=== PATIENT | male | born 1950 | race Caucasian/White ===

== ENCOUNTER → 2016-08-28 | Outpatient (CLI) | payer OTHER ==
[~2016-08-28] MED LIST: AMLO-110 PO; ATOR-26 PO; BENZ100C84 PO; CIPR-255 PO; CLC100 PO; CLIN300C2 PO; FLUT0.15 NAE; FURO20TA PO; GABA-113 PO; HYDR12.55 PO; LISI40TA PO; METF-383 PO; METF750T PO; METO25TA3 PO; MRLP17 PO; NRN400 PO; NSP500 PO; NTRGSL/4 UT; NVLGI7030 SC; SILV1CRE73 TOP; TRIA0.1C20 TOP; TYL325X PO; ZNTT/150 PO
[2016-08-28 18:54] LABS: ALT/SGPT 76 U/L (12-78); BLOOD UREA NITROGEN 13 mg/dl (7-18); BUN/CREATININE RATIO 11.8 (10-20); CALCIUM 9.3 mg/dl (8.5-10.1); CARBON DIOXIDE 25 mmol/L (21-32); CHLORIDE 99 mmol/L (98-107); GLUCOSE 447 mg/dl (70-99); POTASSIUM 4.4 mmol/L (3.5-5.1); SODIUM 130 mmol/L (136-145)
[2016-08-28 19:24] LABS: BETA-HYDROXYBUTYRATE 1.18 mg/dL (0.2-2.81)
== END | disposition home or self-care (01) ==
LOC: C.LABMFLN 10:54
PROVIDERS: ATTEND Family Medicine
DX: E11.9 Type 2 diabetes mellitus without complications (principal); Z11.59 Encounter for screening for other viral diseases

== ENCOUNTER 2016-09-06 09:46 | Inpatient (IN) | payer OTHER ==
[~2016-09-06] VITALS: Ht 175.3 cm; Wt 112.6 kg
[~2016-09-06 09:46] MED LIST changes: -BENZ100C84 PO; -CIPR-255 PO; -CLC100 PO; -CLIN300C2 PO; -FURO20TA PO; -METF750T PO; -MRLP17 PO; -NRN400 PO; -TYL325X PO
[2016-09-06] MEDS ORDERED: SODIUM CHLORIDE 0.9% 1000ML 1,000 ML IV STA (10:32)
[2016-09-06 10:58] LABS: BASO % 0.3 %; BASO ABS # 0.02 K/uL (0-0.2); COMPLETE YES; EOS % 1.6 %; HEMATOCRIT 37.3 % (42-52); IG% 0.9 %; LYMPH % 19.1 %; LYMPH ABS # 1.41 K/uL (1.2-3.4); MEAN CELL VOLUME 83.8 fL (80-100); MEAN CORPUSCULAR HEMOGLOBIN 30.6 pg (25-34); MEAN CORPUSCULAR HGB CONC 36.5 g/dl (32-36); MEAN PLATELET VOLUME 9.5 fL (7.4-10.4); MONO % 12.2 %; NEUT % 65.9 %; PLATELET COUNT 283 K/uL (130-400); RED BLOOD COUNT 4.45 M/uL (4.7-6.1); WHITE BLOOD COUNT 7.37 K/uL (4.8-10.8)
[2016-09-06] MEDS ORDERED: OPTIRAY 320 IV PRN (11:00)
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
[2016-09-06 11:22] LABS: BUN/CREATININE RATIO 11.4 (10-20); CALCIUM 8.7 mg/dl (8.5-10.1); CREATININE 0.96 mg/dl (0.60-1.40); MAGNESIUM 1.8 mg/dl (1.8-2.4); POTASSIUM 4.2 mmol/L (3.5-5.1)
[2016-09-06 11:36] LABS: BETA-HYDROXYBUTYRATE 4.28 mg/dL (0.2-2.81)
[2016-09-06] MEDS ORDERED: BENZ100C84 PO (11:54)
[2016-09-06] MEDS ORDERED: CIPR-255 PO (11:54)
[2016-09-06] MEDS ORDERED: METF750T PO (12:07)
[2016-09-06] MEDS ORDERED: NRN400 PO (12:07)
[2016-09-06] MEDS ORDERED: FURO20TA PO (12:07)
--- NOTE | 2016-09-06 12:28 | DIAGNOSTIC IMAGING REPORT ---
CT OF THE ABDOMEN AND PELVIS WITH CONTRAST CLINICAL HISTORY: Left upper quadrant abdominal pain. COMPARISON STUDY: CT of the abdomen and pelvis December 29, 2015. TECHNIQUE: Following IV administration of 93 mL of Optiray-320, axial images of the abdomen and pelvis were obtained from the lung bases to the proximal femurs. Images were reviewed in the axial, sagittal, and coronal planes. IV contrast was administered without complication. CT DOSE: 1802.46 mGy.cm FINDINGS: Visualization portions of the lower chest demonstrate a complex hypodense abnormality centered within the left lower anterior chest wall that measures 9.5 x 7.5 cm. This may involve a portion of the diaphragm and is contiguous with several costal cartilages and extends into left upper quadrant of the abdomen. There is mild adjacent infiltration. The components superficial and deep to the chest/abdominal wall may communicate. No additional fluid collections are identified. The heart is moderately enlarged. The liver, spleen, adrenal glands, kidneys and pancreas are unremarkable. There is no evidence for a bowel obstruction. No pneumatosis, free air or portal venous gas is present. No suspicious osseous lesions are present. IMPRESSION: Complex 9.5 x 7.5 cm hypodense abnormality within the left lower anterior chest wall, extending into the upper abdominal wall, as described above. Minimal adjacent infiltration. The appearance favors a complex fluid collection such as hematoma or abscess. A mass could appear similar although is considered somewhat less likely. Electronically signed by: Tobin Craig M.D. 09/06/2016 12:26 PM Dictated Date/Time: 09/06/2016 12:14 PM
[2016-09-06 12:35] LABS: URINE APPEARANCE CLEAR (CLEAR); URINE BILIRUBIN NEG (NEG); URINE COLOR YELLOW; URINE EPITHELIAL CELL AUTO 0-5 /lpf (0-5); URINE NITRITE NEG (NEG); URINE PH 7.5 (4.5-7.5); URINE SPECIFIC GRAVITY 1.033 (1.000-1.030); UROBILINOGEN NEG (NEG); ZZUR CULT IF INDIC CLEAN CATCH NO
[2016-09-06 12:37] LABS: MANUAL MICROSCOPIC REQUIRED? NO; REVIEW REQ? NO; SULFASALICYLIC ACID POS (NEG)
[2016-09-06] MEDS ORDERED: NovoLIN-R INSULIN PER UNIT CHARGE SC STA (12:50)
[2016-09-06] MEDS ORDERED: CIPROFLOXACIN 400MG / 200ML D5W IV STA (12:53)
[2016-09-06] MEDS ORDERED: METRONIDAZOLE 500MG / 100ML NSS IV STA (12:53)
[2016-09-06] MEDS ORDERED: ONDANSETRON INJ 2 MG/ML 2 ML VIAL IV STA (14:22)
[2016-09-06] MEDS ORDERED: HYDROmorphone INJ 1 MG/ML SYR IV STA (14:22)
[2016-09-06] MEDS ORDERED: ALUMINUM/MAGNESIUM/SIMETH (MAALOX MAX) 30 ML UDC PO PRN (14:45)
[2016-09-06] MEDS ORDERED: OXYCODONE HCL IR 5 MG TAB (IMMEDIATE RELEASE) PO PRN (14:45)
[2016-09-06] MEDS ORDERED: LORAZEPAM 2 MG/ML 1 ML VIAL IV PRN ×2 (14:45)
[2016-09-06] MEDS ORDERED: MAGNESIUM HYDROXIDE SUSP 30 ML UDC PO PRN (14:45)
[2016-09-06] MEDS ORDERED: LORAZEPAM 0.5 MG TAB PO PRN (14:45)
[2016-09-06] MEDS ORDERED: ONDANSETRON INJ 2 MG/ML 2 ML VIAL IV PRN (14:45)
[2016-09-06] MEDS ORDERED: ACETAMINOPHEN 325 MG TAB PO PRN (14:45)
[2016-09-06] MEDS ORDERED: MAGNESIUM CITRATE 296 ML/BTL PO ONE (15:30)
[2016-09-06] MEDS ORDERED: POLYETHYLENE (MIRALAX) 17 GM PACK PO PRN (15:30)
[2016-09-06] MEDS ORDERED: LORAZEPAM 2 MG/ML 1 ML VIAL IV ONE (15:30)
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
[2016-09-06] MEDS: MoRPHine SULFATE 4 MG/ML 1 ML CARP\\VIAL IV PRN (17:41)
[2016-09-06 18:00] VITALS: BP 132/80; PULSE 120; TEMP 36.9; O2SAT 93; Ht 175.3 cm; Wt 112.6 kg
[2016-09-06] MEDS ORDERED: LORAZEPAM INJ 1 MG in SYRINGE 0.5 ML IV PRN ×2 (18:15→18:45)
[2016-09-06] MEDS: INSULIN ASPART 100 UNITS/ML 3 ML PEN SC SCH ×2 (18:15→21:20)
[2016-09-06] MEDS ORDERED: SODIUM CHLORIDE 0.9% 1000ML 1,000 ML IV SCH (18:15)
[2016-09-06] MEDS ORDERED: LORAZEPAM INJ 0.5 MG in SYRINGE 0.25 ML IV PRN (18:15)
[2016-09-06] MEDS ORDERED: GLUCAGON FOR INJ 1 MG VIAL SQ PRN (18:30)
[2016-09-06] MEDS ORDERED: GLUCOSE 10 TABS/TUBE PO PRN (18:30)
[2016-09-06] MEDS ORDERED: GLUCOSE 40% GEL 15 GM TUBE PO PRN (18:30)
[2016-09-06] MEDS ORDERED: DEXTROSE 50% 50 ML SYR IV PRN (18:30)
[2016-09-06] MEDS: MoRPHine SULFATE 2 MG/ML CARP IV PRN (21:17)
[2016-09-06] MEDS: ATORVASTATIN 40 MG TAB PO SCH (21:18)
[2016-09-06] MEDS: GABAPENTIN 400 MG CAP PO SCH (21:18)
[2016-09-06] MEDS: INSULIN 70% ASPART PROTAMINE/30% ASPART SC SCH (21:21)
[2016-09-06] MEDS: RANITIDINE HCL 150 MG TAB PO SCH (21:22)
[2016-09-06 22:50] VITALS: BP 137/89; PULSE 103; TEMP 37.5; O2SAT 94
[2016-09-07] VITALS (14 sets, daily range): BP systolic 107–144; BP diastolic 54–78; PULSE 70–112; TEMP 36.6–38.2; O2SAT 91–96
[2016-09-07 08:20] LABS: HEMATOCRIT 37.3 % (42-52); MEAN CELL VOLUME 85.2 fL (80-100); MEAN CORPUSCULAR HEMOGLOBIN 29.9 pg (25-34); MEAN CORPUSCULAR HGB CONC 35.1 g/dl (32-36); MEAN PLATELET VOLUME 9.4 fL (7.4-10.4); PLATELET COUNT 282 K/uL (130-400); RED BLOOD COUNT 4.38 M/uL (4.7-6.1); WHITE BLOOD COUNT 9.01 K/uL (4.8-10.8)
[2016-09-07 08:55] LABS: BUN/CREATININE RATIO 10.7 (10-20); CALCIUM 8.3 mg/dl (8.5-10.1); CREATININE 0.89 mg/dl (0.60-1.40)
[2016-09-07] MEDS ORDERED: NIASPAN 500 MG TABCR PO SCH (09:00)
[2016-09-07] MEDS ORDERED: FUROSEMIDE 20 MG TAB PO SCH (09:00)
--- NOTE | 2016-09-07 09:56 | DIAGNOSTIC IMAGING REPORT ---
ULTRASOUND GUIDED ASPIRATION OF LEFT LOWER ANTERIOR CHEST WALL COLLECTION CLINICAL HISTORY: Fluid collection. COMPARISON STUDY: CT of the abdomen and pelvis September 06, 2016. PROCEDURE: The procedure, risks and benefits were discussed with the patient including the risk of bleeding, infection and injury to adjacent structures. The patient agreed to the procedure and informed written consent was obtained. The procedure was performed by Dr. Craig following a timeout. Skin of the left lower chest/upper quadrant of the abdomen was prepped and draped in sterile fashion and local anesthesia was achieved with 1% lidocaine. Under direct ultrasound guidance, an 18-gauge, 3 and 1/2 inch spinal needle was directed into the fluid collection. There was immediate return of purulent fluid. 2 cc of fluid was aspirated and sent to the laboratory for Gram stain, culture and sensitivity. No additional fluid was aspirated as the patient will return later today for CT-guided drain placement within the suspected abscess. The patient tolerated the procedure well and no immediate complications were evident. IMPRESSION: Ultrasound guided aspiration of 2 cc of purulent fluid from the left lower anterior chest wall collection. The findings suggest an abscess. The patient will return later today for a CT-guided drain placement. Fluid sent to laboratory for analysis. Electronically signed by: Tobin Craig M.D. 09/07/2016 9:54 AM Dictated Date/Time: 09/07/2016 9:51 AM
[2016-09-07] MEDS: FLUTICASONE PROPIONATE NA SPR 16 GM BTL NAE SCH (11:35)
[2016-09-07] MEDS: RANITIDINE HCL 150 MG TAB PO SCH ×2 (11:36→21:07)
[2016-09-07] MEDS: GABAPENTIN 400 MG CAP PO SCH ×3 (11:36→21:06)
[2016-09-07] MEDS: AMLODIPINE BESYLATE 5 MG TAB PO SCH (11:37)
[2016-09-07] MEDS: METOPROLOL SUCC 25MG EXT REL TAB PO SCH (11:37)
[2016-09-07] MEDS: INSULIN ASPART 100 UNITS/ML 3 ML PEN SC SCH ×4 (11:46→21:00)
[2016-09-07] MEDS: INSULIN 70% ASPART PROTAMINE/30% ASPART SC SCH ×2 (11:49→19:36)
[2016-09-07] MEDS: LISINOPRIL 40 MG TAB PO SCH (11:50)
[2016-09-07] MEDS: METRONIDAZOLE / NSS 500 MG in PREMIXED NSS 100 ML IV SCH ×2 (12:18→21:06)
--- NOTE | 2016-09-07 12:55 | Clinical Documentation Query ---
QUERY 1 OF [address] ROY, In your clinical opinion is this patient being managed for: ( x ) possible early Sepsis ( ) Other explanation of clinical findings (Please Explain) ( ) Unable to determine (Please Define) ( ) Need to Discuss ( ) Not Agree The medical record reflects the following clinical findings, treatment, and risk factors. Clinical Indicators: Pt presented with symptoms of diaphoresis and clamminess with a loss of appetite. Tachycardic with HR 110 on presentation, hypoxic on RA at 91%. Blood glucose 378 (known DM) Treatment: IV fluids, IV cipro, IV flagyl, US guided aspiration, O2 support, pending aspirated fluid cultures Risk Factors: suspected abscess, uncontrolled DM QUERY 2 OF 2 In your clinical opinion is this patient being managed for: ( x ) abscess of chest wall ( ) Other explanation of clinical findings (Please Explain) ( ) Unable to determine (Please Define) ( ) Need to Discuss ( ) Not Agree The medical record reflects the following clinical findings, treatment, and risk factors. Clinical Indicators: 65 yo male presenting with diaphoresis, cough, persistent constipation, L upper quadrant pain. US guided aspiration of fluid collection obtained purulent fluid, suggesting an abscess. Treatment:US guided aspiration with plan to place drain, pending gram stain and culture of fluid, IV cipro, IV flagyl, Risk Factors:uncontrolled DM Please clarify and document your clinical opinion in the progress notes and discharge summary. Terms such as "probable", "suspected", "likely", "questionable", "possible", or "still to be ruled out" are acceptable. IF IN AGREEMENT, YOU MUST DOCUMENT ABOVE DIAGNOSTIC STATEMENT IN DAILY PROGRESS NOTES AND DISCHARGE SUMMARY. This document is not part of the patient's record. Thank You, Cheryle Vincent RN [phone]
--- NOTE | 2016-09-07 13:22 | Hospitalist Progress Note ---
Hospitalist Progress Note Date of Service Sep 07, 2016. Subjective Pt evaluation today including: conversation w/ patient, chart review, lab review, review of studies, conversation w/ sec reporting consultant, review of inpatient medication list Patient is eating breakfast and does not want to be bothered. He is not answering my questions. He is able to tell me that he has not yet had a bowel movement, but feels like he may have to have one here soon. Additional Comments: Unable to obtain Objective Vital Signs Date Time Temp Pulse Resp B/P Pulse Ox O2 Delivery O2 Flow Rate FiO2 09/07/16 11:30 107 143/78 09/07/16 08:35 91 Room Air 09/07/16 07:02 36.6 99 18 109/64 93 Nasal Cannula 3.5 09/07/16 03:15 36.9 107 22 107/63 93 Nasal Cannula 4.0 09/07/16 00:15 Nasal Cannula 4.0 09/06/16 22:50 37.5 103 22 137/89 94 Nasal Cannula 4.0 09/06/16 18:00 36.9 120 24 132/80 93 Nasal Cannula 4.0 09/06/16 17:45 116 24 106/61 92 09/06/16 17:25 116 106/61 92 Nasal Cannula 3.0 09/06/16 16:00 118 24 154/75 93 Nasal Cannula 3.0 09/06/16 14:54 92 Nasal Cannula 3.0 09/06/16 14:00 112 24 166/85 91 Room Air Physical Exam Notes: Physical exam not performed. Patient refused. He is sitting up eating breakfast in no apparent distress. He is obese. Laboratory Results 09/07/16 08:08 09/07/16 08:08 Test 09/06/16 21:40 09/07/16 08:08 09/07/16 12:14 Urine Random Sodium 38 mEq/L Red Blood Count 4.38 M/uL (4.7-6.1) Mean Corpuscular Volume 85.2 fL (80-100) Mean Corpuscular Hemoglobin 29.9 pg (25-34) Mean Corpuscular Hemoglobin Concent 35.1 g/dl (32-36) RDW Standard Deviation 40.4 fL (36.4-46.3) RDW Coefficient of Variation 13.0 % (11.5-14.5) Mean Platelet Volume 9.4 fL (7.4-10.4) Anion Gap 10.0 mmol/L (3-11) Est Creatinine Clear Calc Drug Dose 102.4 ml/min Estimated GFR () 104.0 Estimated GFR (Non- 89.7 BUN/Creatinine Ratio 10.7 (10-20) Calcium Level 8.3 mg/dl (8.5-10.1) Hepatitis C Antibody Screen NEG (NEG) Bedside Glucose 235 mg/dl (70-99) Last 24 Hours Test 09/06/16 13:53 09/06/16 21:10 09/06/16 21:40 09/07/16 08:08 Bedside Glucose 266 mg/dl 317 mg/dl Urine Random Sodium 38 mEq/L White Blood Count 9.01 K/uL Red Blood Count 4.38 M/uL Hemoglobin 13.1 g/dL Hematocrit 37.3 % Mean Corpuscular Volume 85.2 fL Mean Corpuscular Hemoglobin 29.9 pg Mean Corpuscular Hemoglobin Concent 35.1 g/dl RDW Standard Deviation 40.4 fL RDW Coefficient of Variation 13.0 % Platelet Count 282 K/uL Mean Platelet Volume 9.4 fL Sodium Level 132 mmol/L Potassium Level 4.0 mmol/L Chloride Level 99 mmol/L Carbon Dioxide Level 23 mmol/L Anion Gap 10.0 mmol/L Blood Urea Nitrogen 10 mg/dl Creatinine 0.89 mg/dl Est Creatinine Clear Calc Drug Dose 102.4 ml/min Estimated GFR () 104.0 Estimated GFR (Non- 89.7 BUN/Creatinine Ratio 10.7 Random Glucose 120 mg/dl Calcium Level 8.3 mg/dl Hepatitis C Antibody Screen NEG Test 09/07/16 08:18 09/07/16 12:14 Bedside Glucose 119 mg/dl 235 mg/dl Assessment and Plan 65-year-old male presented to the emergency department with complaints of constipation and left lower chest and left upper abdominal pain. Found to have a fairly large mass per CT scan in that area. Left upper abdominal mass-? hematoma/mass/infection -Ultrasound-guided tap done today by radiology. Specimen was consistent with pustular material as opposed to blood. -Plan is for a CT-guided biopsy today -NPO -Antibiotic coverage with Cipro and Flagyl -Follow CBC Constipation-still no bowel movement -Begin docusate 100 mg twice daily and Senokot 17.2 g in the morning scheduled -Begin MiraLAX 1 dose daily scheduled. Hold for diarrhea Hyponatremia-sodium is improved today. Urine sodium is slightly high--> SIADH -Continue fluid restriction -Continue Lasix 20 mg daily Diabetes mellitus -Continue Novolin 70/30-90 units in the morning with breakfast and 75 units in the evening with dinner. -Outpt metformin 750 mg po BID on hold (ct scan), -Continue novolog coverage -Further Adjustments pending response CAD -Continue Toprol XL 25 mg daily DVT prophylaxis -chemical means on hold because of procedure -TEDS, SCDs CODE STATUS -LEVEL I FULL CODE
[2016-09-07] MEDS: SENNA 8.6 MG TAB PO SCH (13:37)
[2016-09-07] MEDS ORDERED: LORAZEPAM 2 MG/ML 1 ML VIAL ONE (14:05)
[2016-09-07] MEDS ORDERED: VANCOMYCIN CONSULT ACTIVE PRN (15:15)
[2016-09-07] MEDS ORDERED: VANCOMYCIN INJ 2,800 MG in SODIUM CHLORIDE 0.9% 500ML 500 ML IV SCH (15:15)
--- NOTE | 2016-09-07 15:32 | DIAGNOSTIC IMAGING REPORT ---
CT GUIDED DRAINAGE OF LEFT LOWER ANTERIOR CHEST WALL ABSCESS CT DOSE: 2443.90 mGycm CLINICAL HISTORY: Left chest wall abscess. COMPARISON STUDY: CT of the abdomen and pelvis September 06, 2016. PROCEDURE: The procedure, risks and benefits were discussed with the patient including the risk of, bleeding, infection and injury to adjacent structures. The patient agreed to the procedure and informed written consent was obtained. The procedure was performed by Dr. Craig following a timeout. Unenhanced axial images through the lower chest again demonstrated the complex fluid collection along the anterior inferior aspect of the left chest wall. Skin overlying this collection was prepped and draped in sterile fashion and local anesthesia was achieved with 1% lidocaine. Under intermittent CT guidance, a 22-gauge needle was directed into the deep component of the fluid collection. There was immediate return of purulent fluid. Utilizing Seldinger technique, a 10 Thai locking pigtail catheter was inserted into the collection. A total 45 cc of purulent fluid was aspirated and sent to the laboratory. The catheter was secured in place. The patient tolerated the procedure well and no immediate complications were evident. IMPRESSION: CT-guided placement of a 10 Thai locking pigtail catheter within the left lower anterior chest wall abscess. 45 cc of purulent fluid aspirated and sent to laboratory for Gram stain, culture and sensitivity. Electronically signed by: Tobin Craig M.D. 09/07/2016 3:30 PM Dictated Date/Time: 09/07/2016 3:27 PM
[2016-09-07] MEDS ORDERED: OXYCODONE HCL IR 5 MG TAB (IMMEDIATE RELEASE) PO PRN (16:00)
--- NOTE | 2016-09-07 16:31 | Pharmacy Progress Note ---
Pharmacy Antibiotic Consult Date of Service: Sep 07, 2016. Pharmacy Dosing Scope Pharmacy is consulted to initiate Vancomycin IV dosing therapy, order appropriate labs and adjust drug dose/frequency. Subjective The patient is a 65 year old male admitted on Sep 06, 2016 at 14:48 with a Left abdominal mass that Marleny Ybarra started on Cipro and Flagyl. At this time Dr. Langford initiated Vancomycin. Objective Height (Feet): 5 Height (Inches): 9.00 Weight (Kilograms): 112.600 Lab Results (24hrs): Laboratory Tests Test 09/07/16 08:08 BUN/Creatinine Ratio 10.7 Blood Urea Nitrogen 10 mg/dl Creatinine 0.89 mg/dl White Blood Count 9.01 K/uL Micro Results: Item Value Date Time Gram Stain Received 09/07/16 0000 Aspirate - Other Mass Pending Recent Pertinent Medications Item Value Date Time Ciprofloxacin/ 200 ml @ 100 mls/hr 09/07/16 2000 Dextrose 400 mg/ Q12@0800,2000/IV Prmx Metronidazole 500 100 ml @ 100 mls/hr 09/07/16 1200 mg/Prmx Q8@0400,1200,2000/IV 09/07/16 1218 Assessment & Plan Loading dose: Vancomycin 2800mg (~25mg/kg) IV X 1 dose then: Vancomycin 1450mg (~12.8mg/kg) IV every 10 hours thereafter. I estimated his half life at around 7.8 hours. I will check a trough level prior to 1000 dose on 09/09/16. This patient will be prone to accumulation given his bariatric nature. Goal trough level estimate: between 15-20 mcg/mL. Pharmacy will continue to follow and will adjust dose/frequency as necessary. Thank you
[2016-09-07 19:50] LABS: FLUID APPEARANCE TURBID
[2016-09-07] MEDS: CIPROFLOXACIN / D5W 400 MG in PREMIXED IN D5W 200 ML IV SCH (21:06)
[2016-09-07] MEDS: DOCUSATE SODIUM 100 MG CAP PO SCH (21:06)
[2016-09-07] MEDS: ATORVASTATIN 40 MG TAB PO SCH (21:08)
[2016-09-08 03:05] VITALS: TEMP 36.7
[2016-09-08] MEDS: MoRPHine SULFATE 2 MG/ML CARP IV PRN (03:13)
[2016-09-08] MEDS: VANCOMYCIN INJ 1,450 MG in SODIUM CHLORIDE 0.9% 500ML 500 ML IV SCH ×3 (03:50→23:57)
[2016-09-08] MEDS: METRONIDAZOLE / NSS 500 MG in PREMIXED NSS 100 ML IV SCH ×2 (03:50→12:12)
[2016-09-08 06:16] LABS: BASO % 0.4 %; BASO ABS # 0.03 K/uL (0-0.2); COMPLETE YES; EOS % 2.7 %; HEMATOCRIT 36.3 % (42-52); IG% 2.1 %; LYMPH % 11.2 %; MEAN CELL VOLUME 84.4 fL (80-100); MEAN CORPUSCULAR HEMOGLOBIN 28.8 pg (25-34); MEAN CORPUSCULAR HGB CONC 34.2 g/dl (32-36); MEAN PLATELET VOLUME 9.6 fL (7.4-10.4); MONO % 24.2 %; NEUT % 59.4 %; PLATELET COUNT 303 K/uL (130-400); WHITE BLOOD COUNT 7.12 K/uL (4.8-10.8)
[2016-09-08 07:14] LABS: ESTIMATED AVERAGE GLUCOSE 324 mg/dl; HA1C FLAG Normal (Normal)
[2016-09-08 07:55] VITALS: BP 138/72; PULSE 90; TEMP 37; O2SAT 95
[2016-09-08] MEDS: INSULIN ASPART 100 UNITS/ML 3 ML PEN SC SCH ×4 (08:00→21:41)
[2016-09-08] MEDS: CIPROFLOXACIN / D5W 400 MG in PREMIXED IN D5W 200 ML IV SCH (08:08)
[2016-09-08] MEDS: DOCUSATE SODIUM 100 MG CAP PO SCH ×2 (08:09→22:01)
[2016-09-08] MEDS: GABAPENTIN 400 MG CAP PO SCH ×3 (08:10→22:02)
[2016-09-08] MEDS: FLUTICASONE PROPIONATE NA SPR 16 GM BTL NAE SCH (08:10)
[2016-09-08] MEDS: AMLODIPINE BESYLATE 5 MG TAB PO SCH (08:11)
[2016-09-08] MEDS: SENNA 8.6 MG TAB PO SCH (08:11)
[2016-09-08] MEDS: METOPROLOL SUCC 25MG EXT REL TAB PO SCH (08:11)
[2016-09-08] MEDS: RANITIDINE HCL 150 MG TAB PO SCH ×2 (08:11→22:02)
[2016-09-08] MEDS: POLYETHYLENE (MIRALAX) 17 GM PACK PO SCH (08:12)
[2016-09-08] MEDS: LISINOPRIL 40 MG TAB PO SCH (08:12)
[2016-09-08] MEDS: INSULIN 70% ASPART PROTAMINE/30% ASPART SC SCH ×2 (08:18→19:59)
[2016-09-08 08:39] VITALS: O2SAT 95
[2016-09-08] MEDS ORDERED: VANCOMYCIN TROUGH SCH (09:30)
[2016-09-08 11:46] VITALS: BP_SYST 134; BP_SYST 158; BP_DIAS 74; BP_DIAS 84; PULSE 100; PULSE 80; TEMP 36.8; TEMP 36.9; O2SAT 93; O2SAT 95
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
[2016-09-08] MEDS: MoRPHine SULFATE 4 MG/ML 1 ML CARP\\VIAL IV PRN ×2 (13:42→20:11)
[2016-09-08 15:25] VITALS: BP 166/88; PULSE 100; TEMP 36.8; O2SAT 91
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
[2016-09-08] MEDS: ATORVASTATIN 40 MG TAB PO SCH (22:01)
[2016-09-08 23:14] VITALS: BP 122/70; PULSE 88; TEMP 37.3; O2SAT 90
[2016-09-09 07:43] VITALS: BP 139/83; PULSE 81; TEMP 36.6; O2SAT 94
[2016-09-09] MEDS: INSULIN ASPART 100 UNITS/ML 3 ML PEN SC SCH ×4 (08:00→21:14)
[2016-09-09] MEDS: DOCUSATE SODIUM 100 MG CAP PO SCH ×2 (08:52→21:12)
[2016-09-09] MEDS: FLUTICASONE PROPIONATE NA SPR 16 GM BTL NAE SCH (08:52)
[2016-09-09] MEDS: POLYETHYLENE (MIRALAX) 17 GM PACK PO SCH (08:53)
[2016-09-09] MEDS: LISINOPRIL 40 MG TAB PO SCH (08:53)
[2016-09-09] MEDS: METOPROLOL SUCC 25MG EXT REL TAB PO SCH (08:53)
[2016-09-09] MEDS: GABAPENTIN 400 MG CAP PO SCH ×3 (08:53→21:12)
[2016-09-09] MEDS: SENNA 8.6 MG TAB PO SCH (08:54)
[2016-09-09] MEDS: RANITIDINE HCL 150 MG TAB PO SCH ×2 (08:54→21:12)
[2016-09-09] MEDS: AMLODIPINE BESYLATE 5 MG TAB PO SCH (08:54)
[2016-09-09] MEDS: INSULIN 70% ASPART PROTAMINE/30% ASPART SC SCH ×2 (09:28→18:06)
[2016-09-09] MEDS ORDERED: VANCOMYCIN TROUGH SCH (09:30)
[2016-09-09 10:04] LABS: BASO % 0.5 %; BASO ABS # 0.03 K/uL (0-0.2); COMPLETE YES; EOS % 3.2 %; HEMATOCRIT 36.9 % (42-52); IG% 1.7 %; LYMPH % 16.9 %; MEAN CELL VOLUME 84.1 fL (80-100); MEAN CORPUSCULAR HEMOGLOBIN 28.9 pg (25-34); MEAN CORPUSCULAR HGB CONC 34.4 g/dl (32-36); MEAN PLATELET VOLUME 9.5 fL (7.4-10.4); MONO % 16.9 %; NEUT % 60.8 %; PLATELET COUNT 323 K/uL (130-400); RED BLOOD COUNT 4.39 M/uL (4.7-6.1); WHITE BLOOD COUNT 6.49 K/uL (4.8-10.8)
[2016-09-09] MEDS: VANCOMYCIN INJ 1,450 MG in SODIUM CHLORIDE 0.9% 500ML 500 ML IV SCH (10:25)
[2016-09-09] MEDS: MoRPHine SULFATE 4 MG/ML 1 ML CARP\\VIAL IV PRN (10:25)
[2016-09-09 10:27] LABS: BUN/CREATININE RATIO 10.1 (10-20); CREATININE 1.1 mg/dl (0.60-1.40); POTASSIUM 3.9 mmol/L (3.5-5.1)
--- NOTE | 2016-09-09 11:01 | Surgery Progress Note ---
Surgery Progress Note Date of Service Sep 09, 2016. Subjective Pain at drain site mainly. Draining large volumes of purulent fluid - 220 cc yesterday. Objective Vital Signs: Date Time Temp Pulse Resp B/P Pulse Ox O2 Delivery O2 Flow Rate FiO2 09/09/16 07:43 36.6 81 18 139/83 94 Room Air 09/09/16 07:25 Room Air 09/09/16 00:00 Room Air 09/08/16 23:14 37.3 88 18 122/70 90 Room Air 09/08/16 16:00 Room Air 09/08/16 15:25 36.8 100 20 166/88 91 Room Air 09/08/16 11:46 36.8 80 22 158/84 93 Room Air Respiratory/Chest: + pertinent finding (left chest - no erythema or induration , less tender except at drain site) Laboratory Results: Results Past 24 Hours Test 09/08/16 11:57 09/08/16 17:17 09/08/16 20:40 09/09/16 07:36 Range/Units Bedside Glucose 179 192 249 122 70-99 mg/dl Test 09/09/16 09:37 09/09/16 09:39 Range/Units White Blood Count 6.49 4.8-10.8 K/uL Red Blood Count 4.39 4.7-6.1 M/uL Hemoglobin 12.7 14.0-18.0 g/dL Hematocrit 36.9 42-52 % Mean Corpuscular Volume 84.1 80-100 fL Mean Corpuscular Hemoglobin 28.9 25-34 pg Mean Corpuscular Hemoglobin Concent 34.4 32-36 g/dl Platelet Count 323 130-400 K/uL Mean Platelet Volume 9.5 7.4-10.4 fL Neutrophils (%) (Auto) 60.8 % Lymphocytes (%) (Auto) 16.9 % Monocytes (%) (Auto) 16.9 % Eosinophils (%) (Auto) 3.2 % Basophils (%) (Auto) 0.5 % Neutrophils # (Auto) 3.94 1.4-6.5 K/uL Lymphocytes # (Auto) 1.10 1.2-3.4 K/uL Monocytes # (Auto) 1.10 0.11-0.59 K/uL Eosinophils # (Auto) 0.21 0-0.5 K/uL Basophils # (Auto) 0.03 0-0.2 K/uL RDW Standard Deviation 39.5 36.4-46.3 fL RDW Coefficient of Variation 13.0 11.5-14.5 % Immature Granulocyte % (Auto) 1.7 % Immature Granulocyte # (Auto) 0.11 0.00-0.02 K/uL Sodium Level 135 136-145 mmol/L Potassium Level 3.9 3.5-5.1 mmol/L Chloride Level 98 98-107 mmol/L Carbon Dioxide Level 25 21-32 mmol/L Anion Gap 12.0 3-11 mmol/L Blood Urea Nitrogen 11 7-18 mg/dl Creatinine 1.10 0.60-1.40 mg/dl Est Creatinine Clear Calc Drug Dose 82.8 ml/min Estimated GFR () 81.2 Estimated GFR (Non- 70.1 BUN/Creatinine Ratio 10.1 10-20 Random Glucose 272 70-99 mg/dl Calcium Level 8.0 8.5-10.1 mg/dl Vancomycin Level Trough 13.7 SEE COMMENT mcg/ml Microbiology Results 09/08/16 Blood Culture, Received Pending 09/08/16 Blood Culture, Received Pending Assessment & Plan Overall improving s/p CT guided drainage of large left chest wall abscess. Cultures with pansensitive staph aureus. Continue drain until output less than 30 cc in 24 hrs at which point can repeat CT to assess for resolution of abscess prior to drain removal. No indication for surgical intervention as he is improving and appears to be well drained. Will sign off - please call with questions. Should be discharged with drain in place.
--- NOTE | 2016-09-09 12:32 | DIAGNOSTIC IMAGING REPORT ---
CT OF THE ABDOMEN WITHOUT CONTRAST CT DOSE: 1256.12 mGy.cm CLINICAL HISTORY: Reassess abscess. TECHNIQUE: Axial images of the abdomen were obtained without IV or oral contrast. COMPARISON STUDY: CT of the abdomen and pelvis September 06, 2016. FINDINGS: Visualized portions of the lower chest demonstrate moderate cardiomegaly. A few prominent para-aortic lymph nodes are probably benign. There has been interval placement of a percutaneous drain within the left lower anterior chest wall fluid collection. The tip of the drain is within the deep component of the collection. The catheter traverses the superficial component. There has been decrease in size of both components of the fluid collection since prior CT. This collection has moderately decreased in size since exam of September 06, 2016. This collection now measures approximately 9 x 5.1 cm. It previously measured 9.5 x 7.5 cm. There is a suspected small amount of residual fluid within this collection with several locules of gas due to the drain placement. No additional fluid collections are present. Unenhanced images of the liver, spleen, adrenal glands, kidneys and pancreas are unremarkable. Caliber of visualized small and large bowel are normal. There is no biliary ductal dilatation status post cholecystectomy. IMPRESSION: Moderate decrease in size of the left lower anterior chest wall abscess following percutaneous drain placement. Appropriately positioned catheter. Small amount of residual fluid within the abscess. Electronically signed by: Tobin Craig M.D. 09/09/2016 12:30 PM Dictated Date/Time: 09/09/2016 12:24 PM
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
[2016-09-09 15:00] VITALS: BP 143/74; PULSE 89; TEMP 36.7; O2SAT 93
[2016-09-09] MEDS: CLINDAMYCIN IV 600 MG in DEXTROSE 5% ADD-VANTAGE 50ML 50 ML IV SCH ×2 (17:09→23:39)
[2016-09-09] MEDS ORDERED: VANCOMYCIN INJ 1,550 MG in SODIUM CHLORIDE 0.9% 500ML 500 ML IV SCH (20:00)
[2016-09-09] MEDS: ATORVASTATIN 40 MG TAB PO SCH (21:14)
[2016-09-09 22:55] VITALS: BP 142/86; PULSE 86; TEMP 36.6; O2SAT 96
[2016-09-09] MEDS: MoRPHine SULFATE 2 MG/ML CARP IV PRN (23:44)
[2016-09-10 07:24] LABS: BASO % 0.6 %; BASO ABS # 0.04 K/uL (0-0.2); COMPLETE YES; HEMATOCRIT 37.6 % (42-52); IG% 3.3 %; LYMPH % 23.2 %; LYMPH ABS # 1.48 K/uL (1.2-3.4); MEAN CELL VOLUME 85.5 fL (80-100); MEAN CORPUSCULAR HEMOGLOBIN 29.5 pg (25-34); MEAN CORPUSCULAR HGB CONC 34.6 g/dl (32-36); MEAN PLATELET VOLUME 9.5 fL (7.4-10.4); NEUT % 45.9 %; PLATELET COUNT 342 K/uL (130-400); WHITE BLOOD COUNT 6.38 K/uL (4.8-10.8)
[2016-09-10 08:06] VITALS: BP 152/84; PULSE 52; TEMP 36.6; O2SAT 98
[2016-09-10] MEDS: INSULIN ASPART 100 UNITS/ML 3 ML PEN SC SCH ×2 (08:34→12:55)
[2016-09-10] MEDS: METOPROLOL SUCC 25MG EXT REL TAB PO SCH (08:35)
[2016-09-10 08:37] VITALS: O2SAT 93
[2016-09-10] MEDS: FLUTICASONE PROPIONATE NA SPR 16 GM BTL NAE SCH (09:00)
[2016-09-10] MEDS: GABAPENTIN 400 MG CAP PO SCH ×2 (09:15→13:32)
[2016-09-10] MEDS: POLYETHYLENE (MIRALAX) 17 GM PACK PO SCH (09:15)
[2016-09-10] MEDS: CLINDAMYCIN IV 600 MG in DEXTROSE 5% ADD-VANTAGE 50ML 50 ML IV SCH (09:15)
[2016-09-10] MEDS: RANITIDINE HCL 150 MG TAB PO SCH (09:16)
[2016-09-10] MEDS: DOCUSATE SODIUM 100 MG CAP PO SCH (09:16)
[2016-09-10] MEDS: LISINOPRIL 40 MG TAB PO SCH (09:16)
[2016-09-10] MEDS: SENNA 8.6 MG TAB PO SCH (09:16)
[2016-09-10] MEDS: AMLODIPINE BESYLATE 5 MG TAB PO SCH (09:16)
[2016-09-10] MEDS: INSULIN 70% ASPART PROTAMINE/30% ASPART SC SCH (09:27)
[2016-09-10] MEDS ORDERED: TYL325X PO (09:28)
[2016-09-10] MEDS ORDERED: CLIN300C2 PO (09:28)
[2016-09-10] MEDS ORDERED: MRLP17 PO (09:28)
[2016-09-10] MEDS ORDERED: CLC100 PO (09:28)
--- NOTE | 2016-09-10 09:36 | Discharge Instructions ---
Discharge Instructions Date of Service Sep 10, 2016. Admission Reason for Admission: Chest Wall Abscess Discharge Discharge Diagnosis / Problem: Chest and Abdominal wall abscess Discharge Goals Goal(s): Improve disease control, Diagnostic testing, Therapeutic intervention Activity Recommendations Activity Limitations: as noted below Lifting Limitations: no more than 10 pounds Exercise/Sports Limitations: until after follow-up appointment Shower/Bathe: keep incision dry Driving or Machine Use: no limitations . Instructions / Follow-Up Instructions / Follow-Up You were admitted and found to have a large left chest and abdominal wall abscess which is a collection of pus. A drain was placed in this and you continue to drain out large amounts of pus. You will need to have Home Health/ RN come in to assess your drain frequently until it is removed by the Surgeon in her office. You do NOT need to flush this drain as this caused drainage around the drain site. You should follow up with Dr. Joseline Renae the Surgeon, and with your Primary Care doctor within 1 week. It is very important that you take the antibiotics three times a day until they are all gone. If you develop fevers, severe diarrhea, or worsening pain or bleeding, please come to the ER immediately. Current Hospital Diet Patient's current hospital diet: Diabetes Type 2 Diet Discharge Diet Recommended Diet: Diabetes Type 2 Diet Procedures Procedures Performed: CT-guided abscess drainage and drain placement CT abdomen/pelvis Pending Studies Studies pending at discharge: no Laboratory Results Hemoglobin A1c Test 09/08/16 05:47 Range/Units Estimated Average Glucose 324 mg/dl Hemoglobin A1c 12.9 H 4.5-5.6 % Medical Emergencies . Who to Call and When: Medical Emergencies: If at any time you feel your situation is an emergency, please call 911 immediately. . Non-Emergent Contact Non-Emergency issues call your: Primary Care Provider, Surgeon (Dr. Joseline Renae ) Call Non-Emergent contact if: you have a fever, your pain is not controlled, your pain is worsening, your pain is unusual for you, your pain is concerning you, wound has increased drainage, wound has increased redness, wound has increased pain, you have any medication questions . . "Provider Documentation" section prepared by Inez Burton. VTE Core Measure Inpt VTE Proph given/why not?: SCD's
[2016-09-10 13:51] VITALS: BP 152/84; PULSE 52; TEMP 36.6; O2SAT 93
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
== END 2016-09-10 15:30 | disposition home or self-care (01) | DRG 872 ==
LOC: ENRESERVTM → ENRESERV → ENRESERVDT → C.EDB 09:50 → C.MSN 14:48
PROVIDERS: ADMIT Internal Medicine; ATTEND Internal Medicine
DX: A41.01 Sepsis due to Methicillin susceptible Staphylococcus aureus (principal); L02.211 Cutaneous abscess of abdominal wall; E22.2 Syndrome of inappropriate secretion of antidiuretic hormone; K59.00 Constipation, unspecified; E78.5 Hyperlipidemia, unspecified; K21.9 Gastro-esophageal reflux disease without esophagitis; E66.9 Obesity, unspecified; I10 Essential (primary) hypertension; G47.33 Obstructive sleep apnea (adult) (pediatric); F17.200 Nicotine dependence, unspecified, uncomplicated; I25.10 Atherosclerotic heart disease of native coronary artery without angina pectoris; E11.9 Type 2 diabetes mellitus without complications; Z83.3 Family history of diabetes mellitus; Z79.4 Long term (current) use of insulin; Z68.36 Body mass index [BMI] 36.0-36.9, adult

== ENCOUNTER 2017-12-30 03:33 | Emergency (ER) | payer OTHER ==
[~2017-12-30] VITALS: Ht 167.6 cm; Wt 117.0 kg
[~2017-12-30 03:33] MED LIST changes: -AMLO-110 PO; +AMLO5TAB3 PO; +CLC100 PO; +FURO20TA PO; -GABA-113 PO; -HYDR12.55 PO; -METF-383 PO; +METF750T PO; +MRLP17 PO; +NRN400 PO; +RANI150T85 PO; -SILV1CRE73 TOP; -TRIA0.1C20 TOP; +TYL325X PO; -ZNTT/150 PO
[2017-12-30 03:45] VITALS: TEMP 37.1; Ht 167.6 cm; Wt 117.0 kg
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
[2017-12-30] MEDS ORDERED: NITROGLYCERIN 0.4 MG SL PER TAB CHARGE SL PRN (04:15)
[2017-12-30 04:34] LABS: HEMATOCRIT 44.8 % (42-52); HEMOGLOBIN 16.1 g/dL (14.0-18.0); MEAN CORPUSCULAR HEMOGLOBIN 30.6 pg (25-34); MEAN CORPUSCULAR HGB CONC 35.9 g/dl (32-36); MEAN PLATELET VOLUME 10.6 fL (7.4-10.4); PLATELET COUNT 171 K/uL (130-400); RED CELL DISTRIBUTION WIDTH CV 12.5 % (11.5-14.5); RED CELL DISTRIBUTION WIDTH SD 38.4 fL (36.4-46.3); WHITE BLOOD COUNT 6.63 K/uL (4.8-10.8)
[2017-12-30 05:03] LABS: ALBUMIN 3.5 gm/dl (3.4-5.0); ALT/SGPT 33 U/L (12-78); AST/SGOT 20 U/L (15-37); BLOOD UREA NITROGEN 18 mg/dl (7-18); CALCIUM 8.4 mg/dl (8.5-10.1); CARBON DIOXIDE 22 mmol/L (21-32); CREATININE 1.27 mg/dl (0.60-1.40); GLUCOSE 411 mg/dl (70-99); POTASSIUM 3.8 mmol/L (3.5-5.1); SODIUM 135 mmol/L (136-145)
[2017-12-30 05:20] LABS: ALKALINE PHOSPHATASE 88 U/L (45-117); TOTAL PROTEIN 7.4 gm/dl (6.4-8.2)
[2017-12-30] MEDS ORDERED: SODIUM CHLORIDE 0.9% 1000ML 1,000 ML IV STA (05:27)
--- NOTE | 2017-12-30 06:51 | DIAGNOSTIC IMAGING REPORT ---
CHEST ONE VIEW PORTABLE CLINICAL HISTORY: Chest pain COMPARISON STUDY: 12/29/2015 FINDINGS: The heart is enlarged. There is no focal pulmonary consolidation. There is no overt failure. There are no pleural effusions.[ There is a chronic right scapular deformity. IMPRESSION: Cardiomegaly. No evidence of focal pulmonary consolidation. Electronically signed by: Francisco Mortensen M.D. 12/30/2017 6:50 AM Dictated Date/Time: 12/30/2017 6:49 AM
[2017-12-30 06:55] VITALS: BP 107/85; PULSE 87; O2SAT 94
== END 2017-12-30 06:45 | disposition home or self-care (01) ==
LOC: EDBD 03:33 → C.EDA 03:36
DX: E11.65 Type 2 diabetes mellitus with hyperglycemia (principal); R07.89 Other chest pain; S60.511A Abrasion of right hand, initial encounter; S60.512A Abrasion of left hand, initial encounter; W22.8XXA Striking against or struck by other objects, initial encounter; I10 Essential (primary) hypertension; Z79.4 Long term (current) use of insulin; Z79.84 Long term (current) use of oral hypoglycemic drugs; Z79.899 Other long term (current) drug therapy; Z88.0 Allergy status to penicillin; Z91.018 Allergy to other foods; Z88.1 Allergy status to other antibiotic agents